=== PATIENT | male | born 1955 | race Two or more races ===

== ENCOUNTER 2018-12-29 10:57 | Outpatient (CLI) | payer OTHER | END 2018-12-29 14:31 | disposition home or self-care (01) | LOC: SONOGRAMA 10:57 | DX: D21.0 Benign neoplasm of connective and other soft tissue of head, face and neck (principal) ==

== ENCOUNTER 2019-01-25 06:00 | Day surgery (SDC) | payer OTHER | END 2019-01-25 13:00 | disposition home or self-care (01) | LOC: CIR.AMB 06:00 | DX: D21.0 Benign neoplasm of connective and other soft tissue of head, face and neck (principal); D21.11 Benign neoplasm of connective and other soft tissue of right upper limb, including shoulder; L72.0 Epidermal cyst ==